=== PATIENT | male | born 1990 | race African-American/Black ===

== ENCOUNTER → 2020-11-19 | Outpatient (CLI) | payer OTHER ==
--- NOTE | 2020-11-19 13:39 | KCIC ---
CLINICAL INDICATION: Low back pain that radiates into LLE COMPARISON: None available. TECHNIQUE: Multiplanar, multisequence MR imaging of the lumbar spine was performed without IV contras t. FINDINGS: Straightening of the normal lumbar lordosis. No spondylolisthesis. Mild relative decreased T1 marrow signal although remains hyperintense relative to disc. No significa nt marrow edema. No fracture. The disc spaces demonstrate normal height and signal intensity. The conus medullaris is normal in morphology and terminates at L1. At L2-L3: No significant thecal sac deformity or neural foraminal narrowing. At L3-L4: No significant thecal sac deformity or neural foraminal narrowing. At L4-L5: No significant thecal sac deformity or neural foraminal narrowing. At L5-S1: No significant thecal sac deformity or neural foraminal narrowing. No obvious retroperitoneal mass IMPRESSION: 1. No significant thecal sac deformity or neural foraminal narrowing. 2. Mild relative decreased T1 marrow signal may be seen with residual red marrow or a primary consid eration, which may be seen with smoking, anemia or obesity. Electronically signed by: Lincoln Bojorquez MD (11/19/2020 1:37 PM) MARY
== END ==
LOC: KCIC MRI 09:51
PROVIDERS: ATTEND Nurse Practitioner Family
DX: M40.46 Postural lordosis, lumbar region (principal)
CPT/HCPCS: 72148

== ENCOUNTER → 2020-12-09 | Outpatient (CLI) | payer OTHER ==
--- NOTE | 2020-12-09 17:44 | KCIC ---
EXAMINATION: MRI RIGHT UPPER EXTREMITY JOINT WITHOUT CONTRAST INDICATIONS: Right wrist pain. Fell several months ago with continued anterior joint line TECHNIQUE: Multiplanar multisequence MRI of the right wrist was obtained without contrast. COMPARISON: None. FINDINGS: BONES AND CARTILAGE: No acute fracture. There is marrow edema in the body and waist of the scaphoid a nd cysts in the proximal pole of the scaphoid, the largest measuring 4 mm. There are few small cysts in the radial edge of the lunate. Marrow signal is otherwise normal. Articular cartilage is intact. There appears to elbow negative variance. LIGAMENTS: The volar band of the scaphoid lunate ligament is irregular at least partially intact. The volar extrinsic ligaments are irregular and there are small cysts within them near the radioscaphoid joint. The TFCC is intact. The lunotriquetral ligament is intact. TENDONS: Flexor and extensor tendons are intact. No tenosynovitis. There is subluxation of the extens or carpi ulnaris tendon. OTHER: No joint effusion. Muscles and subcutaneous soft tissue are normal. Median and ulnar nerves ar e normal. IMPRESSION: Contusion of the scaphoid with cystic changes in the proximal pole scaphoid and tiny cyst ic changes in the radial edge of the lunate. There is likely a partial tear of the volar band of the scapholunate ligament and of the volar extrinsic ligaments. There are small cystic changes in the vol ar extrinsic ligaments, likely tiny ganglion cysts. Electronically signed by: Flavia Brown MD (12/09/2020 5:41 PM) [id number]
== END ==
LOC: KCIC MRI 12:14
PROVIDERS: ATTEND Family Medicine
DX: S60.211A Contusion of right wrist, initial encounter (principal); X58.XXXA Exposure to other specified factors, initial encounter; Y93.89 Activity, other specified; Y92.89 Other specified places as the place of occurrence of the external cause; Y99.8 Other external cause status
CPT/HCPCS: 73221